=== PATIENT | male | born 2000 | race American Indian/Alaskan Native ===

== ENCOUNTER 2021-04-03 12:11 | Emergency (ER) | payer SELFPAY ==
--- NOTE | 2021-04-03 13:41 | Emergency Department Report ---
ED General Adult HPI - General Chief complaint: Psych Stated complaint: MEDICATION REFILL Time Seen by Provider: 04/03/21 13:36 Source: patient Mode of arrival: Ambulatory Limitations: No Limitations - History of Present Illness Initial comments: 20-year-old -[place] male presents to the emergency room stating that he is taking his medications like he supposed to. States that yesterday his mom and his sibling made him take his medicine at 7:00 in the afternoon and he states he supposed to take it right before bed and that is a half a tablet of the Zyprexa. Patient denies any suicidal ideation denies any homicidal ideation. Patient denies any chest pain no shortness of breathing no agitation no has a clear mind. -: Last night - Related Data Allergies Allergy/AdvReac Type Severity Reaction Status Date / Time No Known Allergies Allergy Unverified 04/03/21 12:46 ED Review of Systems ROS: Stated complaint: MEDICATION REFILL Other details as noted in HPI ED Past Medical Hx - Past Medical History Previous Medical History?: Yes Hx Psychiatric Treatment: Yes ED Physical Exam - General Limitations: No Limitations General appearance: alert, in no apparent distress - Head Head exam: Present: atraumatic, normocephalic - Eye Eye exam: Present: normal appearance - ENT ENT exam: Present: mucous membranes moist - Neck Neck exam: Present: normal inspection - Respiratory Respiratory exam: Present: normal lung sounds bilaterally. Absent: respiratory distress - Cardiovascular Cardiovascular Exam: Present: regular rate, normal rhythm. Absent: systolic murmur, diastolic murmur, rubs, gallop - GI/Abdominal GI/Abdominal exam: Present: soft, normal bowel sounds - Rectal Rectal exam: Present: deferred - Extremities Exam Extremities exam: Present: normal inspection - Back Exam Back exam: Present: normal inspection - Neurological Exam Neurological exam: Present: alert, oriented X3 - Psychiatric Psychiatric exam: Present: normal affect, normal mood - Skin Skin exam: Present: warm, dry, intact, normal color. Absent: rash ED Medical Decision Making - Medical Decision Making 20-year-old -Swedish male presents to the emergency room stating that he is taking his medications like he supposed to. States that yesterday his mom and his sibling made him take his medicine at 7:00 in the afternoon and he states he supposed to take it right before bed and that is a half a tablet of the Zyprexa. Patient denies any suicidal ideation denies any homicidal ideation. Patient denies any chest pain no shortness of breathing no agitation no has a clear mind. Patient is alert and oriented intact capacity to make decisions. Has no homicidal suicidal ideation. Physical examination is within normal limits. Patient states he has been compliant with his medication of Zyprexa. He reports he has not a follow-up appointment with this mental health provider on Tuesday at [address] at [facility]. Patient states that he will be at his appointment. Critical care attestation.: If time is entered above; I have spent that time in minutes in the direct care of this critically ill patient, excluding procedure time. ED Disposition Clinical Impression: History of behavioral and mental health problems Disposition: HOME / SELF CARE / HOMELESS Is pt being admited?: No Does the pt Need Aspirin: No Condition: Stable Additional Instructions: Continue taking your medication as prescribed. Keep your appointments with your mental health provider. Be sure to increase your fluid intake. Rest. Try meditation. Referrals: Your, mental health provider [Other] - 3-5 Days Time of Disposition: 13:40
[2021-04-03 14:01] VITALS: BP 116/45
== END 2021-04-03 14:02 | disposition home or self-care (01) ==
LOC: ED 12:11
DX: Z86.59 Personal history of other mental and behavioral disorders (principal)
CPT/HCPCS: 99283